=== PATIENT | female | born 1970 | race Caucasian/White ===

== ENCOUNTER 2020-05-28 09:51 | Outpatient (REF) | payer OTHER, SELFPAY ==
--- NOTE | 2020-05-28 08:45 | PAPFT_PTH ---
PATIENT: Alma Martin LOC: [facility] U#:[id number] AGE/SX: 50/F ROOM: RE05/28/[address]: Nettie Houston : 1970 BED: DIS: 05/28/2020 SPEC #: [id number] RECD: 05/28/20 18:15 STATUS: PASHA REFederico #: [id number] HARRY: 05/28/20 08:[address]: Nettie Houston DEPT: [facility] Cytology RECD BY: Malissa Jacques Tissues: 1 - CX/ENDOCX FOR PAP SMEARS Procedures: PAP THIN PREP/UVM Screening HPV DNA PROBE Comments: [id number]
[2020-05-29 15:17] LABS: Chlamydia Result Negative (Negative); GC Result Negative (Negative)
== END 2020-05-28 09:52 | disposition home or self-care (01) ==
LOC: NCHCN 09:51
PROVIDERS: PCP Nurse Practitioner Family; Visit Provider Nurse Practitioner Family
DX: Z00.00 Encounter for general adult medical examination without abnormal findings (principal); N89.8 Other specified noninflammatory disorders of vagina; Z11.3 Encounter for screening for infections with a predominantly sexual mode of transmission; Z12.4 Encounter for screening for malignant neoplasm of cervix; Z01.419 Encounter for gynecological examination (general) (routine) without abnormal findings; Z11.51 Encounter for screening for human papillomavirus (HPV)
CPT/HCPCS: 87491; 87591; 88142; 87480; 87510; 87624; 87660

== ENCOUNTER 2021-03-22 01:32 | Outpatient (CLI) | payer OTHER, SELFPAY ==
[2021-03-22 11:13] LABS: Source Nasal/Nares
[2021-03-22 15:47] LABS: COVID-19 PCR Negative (Negative)
== END 2021-03-22 01:33 | disposition home or self-care (01) ==
LOC: LBO 01:33
PROVIDERS: PCP Nurse Practitioner Family; Visit Provider Student in an Organized Health Care Education/Training Program
DX: Z20.822 Contact with and (suspected) exposure to COVID-19 (principal)
CPT/HCPCS: 87635

== ENCOUNTER 2021-03-24 08:01 | Day surgery (SDC) | payer OTHER, SELFPAY ==
[2021-03-24] VITALS (12 sets, daily range): BP systolic 81–114; BP diastolic 49–89; PULSE 58–74; RESP 12–17; TEMP 36.4–36.6; O2SAT 94–100; BMI 25.0
--- NOTE | 2021-03-24 07:31 | PDOC.DSDIS_ITS ---
Discharge Plan Disposition Patient Disposition: HOME Condition: Good Discharge Details Reason For Visit: Right ankle bimalleolar fracture Attending Provider: Howie Murdock Primary Care Provider: Nettie Houston Home Meds and New Rx's Prescriptions: New acetaminophen 500 mg tablet 500 mg PO Q6H PRN (Reason: pain) Qty: 60 RF: 2 ibuprofen 600 mg tablet 600 mg PO TID PRN (Reason: pain) Qty: 60 RF: 0 hydrocodone-acetaminophen 5-325 mg tablet 1 tab PO Q6H PRN (Reason: severe pain) Qty: 6 RF: 0 Continued lamotrigine 200 mg tablet 200 mg PO BID RF: 0 levetiracetam 500 mg tablet 500 mg PO BID RF: 0 cetirizine [Zyrtec] 10 mg tablet 10 mg PO DAILY PRNRF: 0 fluticasone propionate 50 mcg/actuation spray,suspension 1 spray intranasal DAILY RF: 0 multivitamin Tablet 1 tab PO DAILY RF: 0 Discharge Instructions Additional Instructions: Ankle ORIF Discharge Instructions Activity: You are NON WEIGHT BEARING. You should keep the leg elevated as much as possible. You may wiggle your toes and move your hip and knee. Dressings: You should keep your splint clean and dry. Do NOT get wet or dirty. If you have issues with your splint, please call the office at [phone] or the hospital after hours. Medications: - You should take Tylenol and Ibuprofen around the clock for baseline pain. - You have been prescribed a stronger narcotic for breakthrough pain. - You should take a Baby Aspirin (81mg) twice a day for blood clot prevention. Follow-up: 2 weeks Referrals: Howie Murdock MD [ [facility] STAFF PHYSICIAN] - Equipment/Supplies: Non-Weight Bearing Crutches and Splint Activity:: Elevate Remove Dressings/Wound Care:: Do Not Remove Shower/Bathe:: Cover Diet:: As Tolerated Discharge Orders Discharge Orders: Discharge Order (Routine); Ordered 03/24/21 Ordered By: Jenn Lucero DS: Diagnosis Discharge Diagnosis (1) Closed bimalleolar fracture of right ankle: Status: Acute
--- NOTE | 2021-03-24 07:54 | ANES.PREOP_ITS ---
General Info Date of Service Date Performed: 03/24/21 Height: 5 ft 5 in Weight: 68.039 kg Body Mass Index (BMI): 25.0 Surgical Procedure: Operation Date: 03/24/21 10:40 Proposed Procedures Side Surgeon p Ankle ORIF Rt Bimalleolar Fx Right Howie Murdock MD Meds Allergies and Home Medications Allergies Allergy/AdvReac Type Severity Reaction Status Date / Time No Known Allergies Allergy Verified 03/23/21 10:42 Home Medication Medication Instructions Recorded cetirizine 10 mg tablet 10 mg PO DAILY PRN 03/17/21 fluticasone propionate 50 1 spray INTRANASAL DAILY 03/17/21 mcg/actuation nasal spray,suspension lamotrigine 200 mg tablet 200 mg PO BID 03/17/21 levetiracetam 500 mg tablet 500 mg PO BID 03/17/21 multivitamin 1 tab PO DAILY 03/17/21 acetaminophen 500 mg PO Q6H PRN #60 tab 03/24/21 hydrocodone-acetaminophen 1 tab PO Q6H PRN #6 tab 03/24/21 ibuprofen 600 mg PO TID PRN #60 tab 03/24/21 Current Visit Medications: Current Medications Generic Name Dose Route Start Last Admin Trade Name Freq PRN Reason Stop Dose Admin Acetaminophen 1,000 mg 03/24/21 06:00 Acetaminophen 500 Mg Tab PO 03/24/21 16:00 PREOP NIMISHA Acetaminophen 650 mg 03/24/21 07:28 Acetaminophen 325 Mg Tab PO Q4H PRN PRN Hydrocodone Bitart/Acetaminophen 0 tab 03/24/21 07:28 Hydrocodone 5/Acetaminophen 325 Tab PO Q3H PRN PRN Pain Celecoxib 400 mg 03/24/21 06:00 Celecoxib 200 Mg Cap PO 03/24/21 16:00 PREOP NIMISHA Ringer's Solution 1,000 mls @ 80 mls/hr 03/24/21 06:00 IV 04/22/21 23:59 INFUSION NIMISHA Cefazolin Sodium/Dextrose 2 gm in 50 mls @ 100 mls/hr 03/24/21 06:00 Ancef Duplex IVPB 04/22/21 23:59 PREOP NIMISHA Tranexamic Acid 1,000 mg/ 60 mls @ 360 mls/hr 03/24/21 06:00 Sodium Chloride IV 03/24/21 16:00 PREOP NIMISHA IV Miscellaneous Supplies 1 each 03/24/21 06:00 Iv Access IV 04/22/21 23:59 DIRECTED NIMISHA Sodium Chloride 0 ml 03/24/21 06:00 Normal Saline Flush 10 Ml Syr IV 04/22/21 23:59 PRN PRN Sodium Chloride 0 ml 03/24/21 06:00 Normal Saline 10 Ml Vial IJ 04/22/21 23:59 DIRECTED PRN Sterile Water 0 ml 03/24/21 06:00 Water,Injection,Sterile 10 Ml Vial IJ 04/22/21 23:59 DIRECTED PRN PFSH Active Problems Active Problems: Problem Status Onset Code Closed bimalleolar fracture of right ankle S82.841A Epilepsy G40.909 Medical History Medical History Complex partial seizure [place] [facility] [facility] [place] Last seizure was 3 years ago per pt/ Dental root implant present Multiple nevi Seasonal allergies Tobacco Smoking/Tobacco Use Status: Never Alcohol Alcohol Intake: current Alcohol intake frequency: a few times a week Substance Use Substance use: Never Substance use type: does not use Vital Signs and Lab Results Vital Signs Most Recent Vital Signs in EMR: Temp Pulse Resp BP Pulse Ox 36.5 C 74 16 113/86 99 03/24/21 08:17 03/24/21 08:17 03/24/21 08:17 03/24/21 08:17 03/24/21 08:17 Lab Results Blood Type / Crossmatch: No Data to Display Complete Blood Count: No Data to Display Complete Metabolic Panel: No Data to Display Liver Function Panel: 2 No Data to Display Coagulation Panel: No Data to Display Cardiac Panel: No Data to Display Arterial Blood Gas: No Data to Display Venous Blood Gas: No Data to Display Pancreas Panel: No Data to Display Thyroid Panel: No Data to Display Infectious Disease: Coronavirus (COVID-19)(PCR) Negative (Negative) 03/22/21 10:02 03/22/21 Coronavirus 2019 Source Nasal/Nares 03/22/21 10:02 03/22/21 Blood Cultures: No Data to Display Toxicology Panel: No Data to Display Panel: No Data to Display Anesthesia Assessment and Plan Anesthesia History Personal History: No History of Anesthesia Complications Family History: No Family History of Anesthesia Complications Exercise Tolerance Exercise Tolerance: Metabolic Equivalents>4 Pertinent Negatives Pertinent Negatives: No Symptoms of GERD, No Major Cardiovascular Symptoms or Complaints, No Major Pulmonary Symptoms or Complaints and No History of CVA/TIA Cardiac & Pulmonary Exam Cardiac Exam: Normal S1/S2 Heart Sounds Pulmonary Exam: Clear Bilateral Breath Sounds Implantable Cardiac Device Does patient have a Pacemaker or an ICD?: No Airway Exam Known Difficult Airway: No Mallampati Class: 2 Mouth Opening: Normal (> 3cm) Thyromental Distance: Greater than 3 cm Neck Range of Motion: Full ROM Neck Circumference: Normal Teeth Condition: Normal Dentition (Dental implant top 2 front) and Advised tooth loss possible given current condition (indicate tooth) ASA Classification ASA Score: ASA 2 Emergency Case?: No NPO Status NPO Status: NPO Clears >2 hours, Solids >8 hours Status Status: Not Per Patient Anesthesia Plan Resuscitation Status: Full Code Anesthesia Technique: General Anesthesia Airway Planned: LMA Pain Management: Surgeon and patient request nerve block (Right popliteal and adductor canal blocks) Monitors Used: Standard Monitors and Central Line Preoperative Comments:: 50 yo female with ankle fracture. Sig PMHx: epilepsy (levetiracetam/lamotrigine last sz ~3 y ago), never smoker, occ EtOH. Discussed risk, benefits, and alternatives of general vs spinal, +/- regional anesthesia (pop/sci, adductor). plan for general with pop/sci and adductor
[2021-03-24] MEDS: Acetaminophen 500 MG TAB 1000 MG PO (08:48)
[2021-03-24] MEDS: Lactated Ringers 1,000 ML 80 ML IV (08:49)
[2021-03-24] MEDS: Celecoxib 200 MG CAP 400 MG PO (08:49)
--- NOTE | 2021-03-24 09:13 | HPE_ITS ---
Assessment and Plan Assessment and plan (1) Closed bimalleolar fracture of right ankle: Status: Acute Assessment and plan: Alma is a 50-year-old who has a displaced bimalleolar ankle fracture on the right side. Given her young age and active lifestyle would recommend fixation for stabilization of the bony fragments and to prevent future degeneration of the ankle joint. I reviewed the technical details of this case. I also discussed the risk of the procedure to include bleeding, infection, pain, stiffness, damage to nerves and vessels, damage to muscle and tendons, malunion, nonunion, hardware prominence, hardware failure, blood clot, need for repeat procedures. Despite these risk, she elects to proceed. Qualifiers: Encounter type: initial encounter Qualified Code(s): S82.841A - Displaced bimalleolar fracture of right lower leg, initial encounter for closed fracture History of Present Illness History of Present Illness Chief Complaint: Right Ankle Fracture Narrative: Alma is a healthy and active 50-year-old who was walking outside on 08 March when she slipped on some ice. She had a twisting type injury to her right ankle and felt immediate pain with a palpable and audible crack. She was seen in the [facility] emergency department and diagnosed with a bimalleolar ankle fracture. A gentle reduction was performed and she was placed in a splint. I discussed the case with her over the phone given that she lives a distance away. Given the bimalleolar nature of the fracture and its displacement I recommend operative fixation. She is here today for that procedure. She denies any numbness or tingling. She denies any previous issues with anesthesia. She denies any chest pain or shortness of breath. She does have significant anxiety by procedure and about taking any pain medications. He has no sick contacts. No active medical issues. Negative COVID-19 test. She does have remote history of seizure which is well controlled. Review of Systems All systems reviewed & are unremarkable except as noted in HPI and below PFSH All Active Problems (Updated 03/24/21 @ 10:25 by Howie Murdock MD) Closed bimalleolar fracture of right ankle (Acute) Epilepsy (Acute) Medical History Complex partial seizure Being followed [place] Dr. Long[place] [facility] [place]. Last seizure was 3 years ago per pt/ Dental root implant present Multiple nevi Seasonal allergies Social History Smoking/Tobacco Use Status: Never Smoking risk assessment performed?: Yes Alcohol Intake: current Alcohol Intake frequency: a few times a week Drug use: Never Substance use type: does not use Do you feel safe at home: Yes Do you feel safe in your relationship?: Yes Meds Allergies and Home Medications Allergies Allergy/AdvReac Type Severity Reaction Status Date / Time No Known Allergies Allergy Verified 03/23/21 10:42 Home Medications Medication Instructions Recorded Confirmed Type cetirizine 10 mg tablet 10 mg PO DAILY PRN 03/17/21 03/23/21 History fluticasone propionate 50 1 spray INTRANASAL DAILY 03/17/21 03/23/21 History mcg/actuation nasal spray,suspension lamotrigine 200 mg tablet 200 mg PO BID 03/17/21 03/23/21 History levetiracetam 500 mg tablet 500 mg PO BID 03/17/21 03/23/21 History multivitamin 1 tab PO DAILY 03/17/21 03/23/21 History acetaminophen 500 mg PO Q6H PRN #60 tab 03/24/21 Rx hydrocodone-acetaminophen 1 tab PO Q6H PRN #6 tab 03/24/21 Rx ibuprofen 600 mg PO TID PRN #60 tab 03/24/21 Rx Exam Resp Effort & Inspection: normal respiratory effort Auscultation: clear to auscultation bilaterally Cardio Rate: regular rate Rhythm: regular rhythm Extrem Other: Evaluation of the right leg shows a well-placed splint. Toes are warm and well perfused. Capillary fill less than 2 seconds. Sensation is grossly intact to light touch over the deep and superficial peroneal nerve and tibial nerve distribution. No pain to palpation around the knee. Results Imaging Imaging Studies: X-ray of the right knee shows a bimalleolar ankle fracture. There is lateral placement both the medial and lateral fragments with some shift of the talus. Last Vital Signs Temp 36.5 C 03/24/21 08:17 Pulse 74 03/24/21 08:17 Resp 16 03/24/21 08:17 BP 113/86 03/24/21 08:17 Pulse Ox 99 03/24/21 08:17
--- NOTE | 2021-03-24 10:22 | NUR.NOTE ---
R leg Nerve block performed, adductor and popliteal, without incident. Pt tolerated procedure well. Vitals stable pre, during nd post procedure. Nursing Note:
[2021-03-24] MEDS: ceFAZolin 2 GM/50 ML BAG IVPB (10:27)
--- NOTE | 2021-03-24 10:55 | W.ANESNERVE ---
Nerve Block Single Injection Procedure Date and Time Date Performed: 03/24/21 Procedure Start: 10:10 Location Where Procedure Performed Procedure Location: Day Surgery Unit Reason Performed: Postoperative Analgesia Requesting Provider: Howie Murdock Timeout Performed Timeout Performed: Yes Monitoring Used ECG, Blood Pressure and SpO2 Sterility Sterility: Hand Hygiene and Surgical Cap Sedation Given During Procedure Sedation Given (Indicate Dose Given): Versed IV Dose:: 5 mg Patient Mental Status Patient Mental Status: Sedate with meaningful communication Nerve Block 1st Nerve Block: Laterality: Right Block Type: Adductor Canal Needle / Catheter Used: 100mm SonoPlex II Local Anesthetic Bolus (Indicate Dose Given): Lidocaine used for local infiltration of skin, Injected in 3-5ml increments after negative blood aspiration, Bupivacaine 0.375% Dose:: 10 and Exparel Dose:: 5 Additives (Indicate Dose Given): None Ultrasound: Sterile probe cover and gel used Ultrasound Image Saved?: Yes Nerve Stimulator: Not Used Paresthesia: None Procedure Tolerated: No Complications Procedure Outcome: Successful Performed By: Bo Dickey 2nd Nerve Block: Laterality: Right Block Type: Popliteal Sciatic Needle / Catheter Used: 100mm SonoPlex II Local Anesthetic Bolus (Indicate Dose Given): Lidocaine used for local infiltration of skin, Injected in 3-5ml increments after negative blood aspiration, Bupivacaine 0.375% Dose:: 20 mL and Exparel Dose:: 15 mL Additives (Indicate Dose Given): None Ultrasound: Sterile probe cover and gel used Ultrasound Image Saved?: Yes Nerve Stimulator: Not Used Paresthesia: None Procedure Tolerated: No Complications Procedure Outcome: Successful Performed By: oB Dickey
--- NOTE | 2021-03-24 12:27 | DI.RAD_ITS ---
Exam(s) XR ANKLE RT 2V EXAM: XR ANKLE RT 2V CLINICAL HISTORY: FRACTURED RIGHT ANKLE TECHNIQUE: 2D and realtime digital imaging was performed. COMPARISON: CR XR ANKLE COMPLETE MIN 3V RT from 03/15/2021 FINDINGS: C-arm fluoroscopy was utilized by Dr. Murdock during open reduction and internal fixation of tibiofi bular fracture fragments. Hard copies show plate and screw fixation in place with nearly anatomic al ignment of the fracture fragments. IMPRESSION: RADIATION DOSE DELIVERED: percy Rollins=1.96 mGy Total DLP
--- NOTE | 2021-03-24 14:17 | W.ANESPOSTOP ---
Postoperative Evaluation Date, Time and Location Date Performed: 03/24/21 Time Performed: 14:17 Patient Location: Day Surgery Unit Vital Signs Most Recent Imported Vital Signs: Most Recent Vital Signs Temp Pulse Resp BP Pulse Ox 36.5 C 66 16 102/89 94 03/24/21 13:45 03/24/21 13:45 03/24/21 13:45 03/24/21 13:45 03/24/21 13:45 Pain Score Most Recent Pain Score: Most Recent Pain Score Pain Level 0 03/24/21 13:45 Assessment Mental Status: Awake (Alert & Oriented to Patient Baseline) Airway and Respiratory Function: Patent airway with normal (patient baseline) respiratory exam Cardiovascular Function: Hemodynamically Stable Hydration Status: Adequately Hydrated Nausea & Vomiting: No Nausea or Vomiting Pain: Pt. Denies Any Pain Peripheral Nerve Block: Regional nerve block not resolved at time of post operative discharge
--- NOTE | 2021-03-24 21:00 | W.PM.OP ---
Date of service: 03/24/21 Time of Service: 13:00 Operative Note Operative Note DATE OF PROCEDURE: 10/05/19 PRE-OP DIAGNOSIS: [SIDE] Ankle Fracture POST-OP DIAGNOSIS: same PROCEDURE: Open Reduction and Internal Fixation of Right Ankle - Lateral Malleolus, Medial Malleolus, Syndesmosis SURGEON: Howie Murdock CRM MANAGER: Jenn Lucero ANESTHESIA TYPE: Spinal Refer to Anesthesia Record ESTIMATED BLOOD LOSS: 50 PATHOLOGY: none sent TOURNIQUET TIME: 0 COMPLICATIONS: None Patient was transported to: PACU Patient's condition: stable Indications: Alma who presented to the Emergency Department at [facility] after a fall. X-rays confirmed the diagnosis of a bimalleolar ankle fracture. I reviewed the possible treatment options and given the fracture, I recommended operative fixation. I discussed the technical details of the surgery. I reviewed the risks such as bleeding, infection, pain, stiffness, malunion, nonunion, hardware prominence, hardware faiilure, malrotation, damage to nerves and vessels, blood clot. Despite these risks, Alma agreed to proceed. Findings: There was a fracture of the medial malleolus, more vertical than usual, which waThis was secured with the IMN and screws. Procedure Description: Alma was greeted in the preoperative area. Consent was previously reviewed and signed. Once in the operating room, anesthesia was administered. The patient was transferred to the fracture table in the supine position. She was positioned in the supine position with the operative side placed onto a bone foam ramp. All bony prominences were well padded. Arms were placed out to the side, padded, and secured. A single dose of TXA, 1 gram, was then administered IV. Prophylactic antibiotics, Cefazolin 2 grams, was given for prophylactic antibiotics. A timeout was performed for safe surgery. The right leg was prepped with Chloraprep. The leg was draped with a stockinette and extremity drape. The medial side was approached first. This utilized a curvilinear incision. Deep dissection was carried bluntly after the skin was incised. Branch of the saphenous vein were cauterized and the saphenous vein itself was mobilized. Fracture was quite evident. It was a vertical appearing fracture starting at the shoulder of the medial tibia. Fracture hematoma was cleared. The fracture was actually opened and the joint was inspected. Some synovitis was removed and there is no other loose debris seen. Attention was then turned to the lateral side of the ankle. A longitudinal incision was made overlying the fibula. Dissection was carried out the skin. Blunt dissection was carried deeper. The fascia overlying the fibula was incised sharply and periosteal flaps were raised. The fracture was opened up and fracture hematoma was removed. I then was able to reduce the fracture with manipulation of traction, and internal rotation of the foot along with a pointed point lobster claw type clamp. There is no significant bone to lag and therefore the clamp was left in place. I drove a K wire across the fracture site to provisionally hold the fracture. A variable angle Synthes distal fibular locking plate was then placed onto the lateral fibula. This held in place by clamp. 2 distal screws were placed. These were 2.7 mm locking screws. A single 3.5 millimeters screw was placed proximal to the fracture site to bring the plate down to bone and secure it. Fluoroscopy is utilized to confirm that the plate was in appropriate position the fracture still reduced. This point I proceeded with placing 2 additional screws in the proximal plate, one 3.5 mm and one 2.7 millimeter screw. These were placed bicortically. I placed additional 2 2.7mm locking screws distally. With this in place the Ana was tested and the fibula was stable. However, on stress view, the medial clear space opened up. Therefore, I proceeded to place a Synthes Fibulink device. This in position the syndesmosis was tightened with the foot in neutral dorsiflexion. Ankle was once again tested and there is no gapping of the medial clear space. The wound laterally and medially are both irrigated thoroughly. Skin and soft tissues were injected with 0.25% bupivacaine with epinephrine. Over the medial ankle, the deep tissues were closed with 3-0 Vicryl followed by a 4-0 nylon. The lateral ankle had its deep tissue, fascia, closed with a 0 Vicryl. This was then followed by 3-0 Vicryl in buried fashion and then by a 4-0 nylon in interrupted manner. The wounds were dressed with Xeroform, 4 x 4's, web roll. This was placed into a short posterior leg splint which was well-padded. At the end of the case, all counts were correct. Alma tolerated the procedure well without known complication and was taken to the PACU for recovery. Plan will remain nonweightbearing. She will be seen in follow-up in 10 to 14 days for splint removal and x-rays.
--- NOTE | 2021-03-27 08:57 | ANES_ITS ---
Date of service: 03/27/21 Time of Service: 08:57 Anesthesia Note Report Anesthesia Note: Return telephone call to patient who paged supervisor electronics testing provider to discuss tingling sensation in operative lower extremity. Patient reports some tactile sensation return afternoon and then intermittent periods of what was reported as tingling to lateral aspect of leg. Nerve block notes were reviewed and patient received both Bupivacaine and Exparel in both the adductor and sciatic blocks. Patient was re-educated about the duration of action of Exparel and the likelihood that the density of the block changed afternoon as the Bupivacaine wore off and the Exparel continued to provide some degree of analgesia. Patient reports brisk capillary refill to all toes on surgical side. Patient encouraged to continue following post operative instructions and to reach out with any further concerns. Will follow up with patient early next week.
--- NOTE | 2021-04-01 09:13 | PDOC.ANES ---
Date of service: 04/01/21 Time of Service: 09:14 Anesthesia Note Report Anesthesia Note: Called Alma to follow up in regards to her conversation with my colleague this past weekend. Her nerve block has fully worn off, it was mostly off by Monday. She has not more of the tingling that she was experiencing before. We discussed that it sounds like the tingling was just the waning of the block, but that we are always concerned for nerve injury. she expressed understanding and feels good. She has no further questions at this time and was encouraged to reach out to us if she has any.
== END 2021-03-24 08:02 | disposition home or self-care (01) ==
LOC: SUR 08:01
PROVIDERS: PCP Nurse Practitioner Family; Visit Provider Student in an Organized Health Care Education/Training Program
PROC: (CPT 27814; principal; 2021-03-24 10:30)
DX: S82.841A Displaced bimalleolar fracture of right lower leg, initial encounter for closed fracture (principal); G40.909 Epilepsy, unspecified, not intractable, without status epilepticus; X58.XXXA Exposure to other specified factors, initial encounter
CPT/HCPCS: 27814; 27829; 76942; 73600; J0690; J1100; J1885; J2405

== ENCOUNTER 2021-04-02 08:22 | Outpatient (CLI) | payer OTHER, SELFPAY ==
--- NOTE | 2021-04-02 08:00 | DI.RAD_ITS ---
Exam(s) XR ANKLE RT COMPLETE EXAM: XR ANKLE RT COMPLETE CLINICAL HISTORY: s/p orif. TECHNIQUE: 2D digital imaging was performed. COMPARISON: No exams were available for comparison FINDINGS: There is a lateral fixation plate across a healed fibular fracture site. There are also 2 parallel s crews across a healed medial malleolus fracture site and there are other screws just above the tibial plafond. There is no widening of the mortise. Talar dome appears unremarkable. Sub talar joint ap pears unremarkable. There is no narrowing of the tibiotalar joint. No radiographic evidence of hardware loosening nor osteomyelitis. IMPRESSION: DATA REPOSITORY: RADIATION DOSE DELIVERED:
== END 2021-04-02 08:23 | disposition home or self-care (01) ==
LOC: DIORS 08:23
PROVIDERS: PCP Nurse Practitioner Family; Referring Provider Nurse Practitioner Family; Visit Provider Physician Assistant Surgical
DX: S82.841D Displaced bimalleolar fracture of right lower leg, subsequent encounter for closed fracture with routine healing (principal)
CPT/HCPCS: 73610

== ENCOUNTER 2021-04-30 10:10 | Outpatient (CLI) | payer OTHER, SELFPAY ==
--- NOTE | 2021-04-30 10:00 | DI.RAD_ITS ---
Exam(s) XR ANKLE RT COMPLETE EXAM: XR ANKLE RT COMPLETE CLINICAL HISTORY: f/u R ankle fracture. TECHNIQUE: 2D digital imaging was performed. COMPARISON: CR XR ANKLE RT COMPLETE from 04/02/2021 FINDINGS: BONES: There are stable post operative changes present. No new fracture or dislocation. JOINTS: The joint spaces are well maintained. No joint effusion is present. SOFT TISSUE: Normal. IMPRESSION: Stable postoperative changes. DATA REPOSITORY: RADIATION DOSE DELIVERED:
== END 2021-04-30 10:11 | disposition home or self-care (01) ==
LOC: DIORS 10:10
PROVIDERS: PCP Nurse Practitioner Family; Referring Provider Nurse Practitioner Family; Visit Provider Student in an Organized Health Care Education/Training Program
DX: S82.841D Displaced bimalleolar fracture of right lower leg, subsequent encounter for closed fracture with routine healing (principal); X58.XXXD Exposure to other specified factors, subsequent encounter
CPT/HCPCS: 73610

== ENCOUNTER 2021-05-28 11:14 | Outpatient (CLI) | payer OTHER, SELFPAY ==
--- NOTE | 2021-05-28 10:45 | DI.RAD_ITS ---
Exam(s) XR ANKLE RT COMPLETE EXAM: XR ANKLE RT COMPLETE CLINICAL HISTORY: FU R ANKLE FRACTURE. TECHNIQUE: 2D digital imaging was performed. COMPARISON: CR XR ANKLE RT COMPLETE from 04/30/2021 FINDINGS: Again noted is evidence of ORIF with lateral fixation plate across healed distal fibular fracture sit e and screws across the medial malleolus from healed fracture site as well as oblique screws above th e tibial plafond and. There is no hardware loosening nor radiographic evidence of osteomyelitis. Th ere are mild degenerative changes in the tibiotalar joint. Some mild lucency is noted in the talar d ome but no distinct osteochondral defect nor prominent degenerative subarticular cyst at this level. Subtalar joint appears unremarkable. No os trigonum. No prominent inferior calcaneal spur. No deg enerative changes in the talonavicular and calcaneocuboid joints. IMPRESSION: DATA REPOSITORY: RADIATION DOSE DELIVERED:
== END 2021-05-28 11:15 | disposition home or self-care (01) ==
LOC: DIORS 11:14
PROVIDERS: PCP Nurse Practitioner Family; Visit Provider Student in an Organized Health Care Education/Training Program
DX: S82.841D Displaced bimalleolar fracture of right lower leg, subsequent encounter for closed fracture with routine healing (principal); X58.XXXD Exposure to other specified factors, subsequent encounter
CPT/HCPCS: 73610

== ENCOUNTER 2021-06-29 12:12 | Outpatient (REF) | payer OTHER, SELFPAY ==
[2021-06-29 14:19] LABS: Anion Gap 8.5 mmol/L (3-11); BUN 6 mg/dL (7-18); CO2 26.5 mmol/L (21.0-32.0); CREATININE 0.8 mg/dL (0.55-1.02); Calcium 8.8 mg/dL (8.5-10.1); Calculated LDL 159 mg/dL (<100); Chloride 105 mmol/L (98-107); Cholesterol 241 mg/dL (<200); Glucose 90 mg/dL (74-106); HDL Cholesterol 61 mg/dL (40-60); Potassium 4.7 mmol/L (3.5-5.1); Sodium 140 mmol/L (136-145); Triglyceride 106 mg/dL (<150)
[2021-06-30 10:17] LABS: HIV-1/2 Ag & Ab Screen Negative (Negative)
[2021-06-30 11:04] LABS: Hep A Total Ab w Rflx IgM Positive (Negative)
[2021-06-30 13:20] LABS: HCV RNA Qualitative Undetected (Undetected); Hep A Antibody IgM Negative (Negative)
== END 2021-06-29 12:13 | disposition home or self-care (01) ==
LOC: NCHCN 12:12
PROVIDERS: PCP Nurse Practitioner Family; Visit Provider Nurse Practitioner Family
DX: G40.209 Localization-related (focal) (partial) symptomatic epilepsy and epileptic syndromes with complex partial seizures, not intractable, without status epilepticus (principal); Z79.899 Other long term (current) drug therapy; Z01.84 Encounter for antibody response examination; Z11.59 Encounter for screening for other viral diseases; Z51.81 Encounter for therapeutic drug level monitoring; Z11.4 Encounter for screening for human immunodeficiency virus [HIV]; Z00.00 Encounter for general adult medical examination without abnormal findings; Z13.220 Encounter for screening for lipoid disorders
CPT/HCPCS: 80048; 80061; 80175; 86709; 87389; 87522

== ENCOUNTER 2021-07-02 10:38 | Outpatient (CLI) | payer OTHER, SELFPAY ==
--- NOTE | 2021-07-02 10:30 | DI.RAD_ITS ---
Exam(s) XR ANKLE RT COMPLETE EXAM: XR ANKLE RT COMPLETE CLINICAL HISTORY: follow up. TECHNIQUE: 2D digital imaging was performed. Three images were obtained. AP, lateral and oblique vi ews were obtained. COMPARISON: CR XR ANKLE RT COMPLETE from 05/28/2021 FINDINGS: BONES: There are stable post operative changes present. No new fracture or dislocation. JOINTS: The joint spaces are well maintained. No joint effusion is present. SOFT TISSUE: Normal. IMPRESSION: Stable postoperative changes. DATA REPOSITORY: RADIATION DOSE DELIVERED:
== END 2021-07-02 10:39 | disposition home or self-care (01) ==
LOC: DIORS 10:38
PROVIDERS: PCP Nurse Practitioner Family; Referring Provider Nurse Practitioner Family; Visit Provider Physician Assistant Surgical
DX: S82.841D Displaced bimalleolar fracture of right lower leg, subsequent encounter for closed fracture with routine healing (principal); X58.XXXD Exposure to other specified factors, subsequent encounter
CPT/HCPCS: 73610

== ENCOUNTER → 2021-07-26 00:17 | Outpatient (CLI) | payer OTHER, SELFPAY ==
--- NOTE | 2021-07-26 | DI.MAMMO_ITS ---
Exam(s) MAMMO SCREENING EXAM: MAMMO SCREENING CLINICAL HISTORY: SCREENING FOR BREAST CA, Z12.39. TECHNIQUE: Bilateral full field digital CC and MLO mammographic images were obtained with 3D tomosyn thesis and utilizing computer aided detection (CAD). COMPARISON: Prior outside mammograms were reviewed, the most recent being November 2018. FINDINGS: There has been no significant change in appearance and distribution of the fibroglandular tissue agai n noted be moderately dense, this somewhat decreasing the sensitivity of the mammogram for finding hi dden underlying lesions. Small benign-appearing nodules laterally in the right breast are unchanged from prior studies. Proba mishel benign intramammary lymph nodes. There are no new spiculated masses nor malignant appearing microcalcification groups. There is no significant architectural distortion nor skin thickening-retraction. IMPRESSION: No radiographic evidence of malignancy. BI-RADS Category 1 - Negative Breast Density - Category C - Heterogeneously dense Breast density Category C or D implies that the patient has dense breast tissue. Dense breast tissue can make it harder to find cancer on a mammogram. Dense breast tissue is also associated with an incr eased risk of breast cancer. This information about the result of the mammogram report was provided to the patient to raise their awareness. Use this report when you speak with the patient about their risks for breast cancer, which includes their family history. At that time, you may recommend additional screening tests (Ultrasoun d or MRI) as these tests may add significant information. A negative radiographic report should not delay biopsy if a dominant or clinically suspicious mass is present. Up to ten percent of cancers are not identified on mammography. A negative report may reinforce clinical impression. Adenosis and dense breasts may obscure an underlying neoplasm. False positive reports average 6 to 10%. Patient will receive a letter notifying them of these results.
== END ==
PROVIDERS: PCP Nurse Practitioner Family; Visit Provider Nurse Practitioner Family
DX: Z12.31 Encounter for screening mammogram for malignant neoplasm of breast (principal)
CPT/HCPCS: 77063; 77067

== ENCOUNTER 2022-05-31 11:10 | Day surgery (SDC) | payer OTHER, SELFPAY ==
[2022-05-31 12:17] VITALS: BP 125/86; PULSE 85; RESP 16; TEMP 37; O2SAT 99
[2022-05-31] MEDS: Lactated Ringers 1,000 ML 80 ML IV (12:35)
--- NOTE | 2022-05-31 13:36 | ANES.PREOP_ITS ---
General Info Date of Service Date Performed: 05/31/22 Height: 5 ft 6 in Weight: 69.7 kg Body Mass Index (BMI): 24.7 Surgical Procedure: Operation Date: 05/31/22 14:20 Proposed Procedure Side Surgeon p Colonoscopy Eren Loco MD Meds Allergies and Home Medications Allergies Allergy/AdvReac Type Severity Reaction Status Date / Time No Known Allergies Allergy Verified 07/02/21 10:27 Home Medication Medication Instructions Recorded cetirizine 10 mg tablet (Zyrtec) 10 mg PO DAILY PRN 03/17/21 lamotrigine 200 mg tablet 200 mg PO BID 03/17/21 levetiracetam 500 mg tablet 500 mg PO BID 03/17/21 multivitamin 1 tab PO DAILY 03/17/21 acetaminophen 500 mg tablet 500 mg PO Q6H PRN pain #60 tabs 03/24/21 ibuprofen 600 mg tablet 600 mg PO TID PRN pain #60 tabs 03/24/21 bisacodyl 5 mg tablet,delayed 5 mg PO ONCE colonscopy bowel prep 05/27/22 release (Dulcolax (bisacodyl)) #4 tabs fluticasone propionate 50 1 spray intranasal DAILY PRN 05/27/22 mcg/actuation nasal spray,suspension polyethylene glycol 3350 17 238 g PO ONCE colonoscopy prep 05/27/22 gram/dose oral powder #238 grams Current Visit Medications: Current Medications Generic Name Dose Route Start Last Admin Trade Name Freq PRN Reason Stop Dose Admin Ringer's Solution 1,000 mls @ 80 mls/hr 05/31/22 06:00 05/31/22 12:35 IV 06/29/22 23:59 80 mls/hr INFUSION NIMISHA Administration IV Miscellaneous Supplies 1 each 05/31/22 06:00 Iv Access IV 06/29/22 23:59 DIRECTED NIMISHA Sodium Chloride 0 ml 05/31/22 06:00 Normal Saline Flush 10 Ml Syr IV 06/29/22 23:59 PRN PRN Sodium Chloride 0 ml 05/31/22 06:00 Normal Saline 10 Ml Vial IJ 06/29/22 23:59 DIRECTED PRN Sterile Water 0 ml 05/31/22 06:00 Water,Injection,Sterile 10 Ml Vial IJ 06/29/22 23:59 DIRECTED PRN PFSH Active Problems Active Problems: Problem Status Onset Code Epilepsy G40.909 Screening for colon cancer Z12.11 Medical History Medical History Closed bimalleolar fracture of right ankle Complex partial seizure [place] [facility] [place] Last seizure was 3 years ago per pt/ Dental root implant present Multiple nevi Seasonal allergies Surgical History Surgical History History of ankle surgery Tobacco Smoking/Tobacco Use Status: Never Alcohol Alcohol Intake: current Alcohol intake frequency: a few times a week Substance Use Substance use: Never Substance use type: does not use Vital Signs and Lab Results Vital Signs Most Recent Vital Signs in EMR: Most Recent Vital Signs Temp Pulse Resp BP Pulse Ox 37.0 C 85 16 125/86 99 05/31/22 12:17 05/31/22 12:17 05/31/22 12:17 05/31/22 12:17 05/31/22 12:17 Point of Care Results Point of Care Results: POC- Test(urine) Negative 05/31/22 12:40 Lab Results Blood Type / Crossmatch: No Data to Display Complete Blood Count: No Data to Display Complete Metabolic Panel: No Data to Display Liver Function Panel: No Data to Display Coagulation Panel: No Data to Display Cardiac Panel: No Data to Display Arterial Blood Gas: No Data to Display Venous Blood Gas: No Data to Display Pancreas Panel: No Data to Display Thyroid Panel: No Data to Display Infectious Disease: No Data to Display Blood Cultures: No Data to Display Toxicology Panel: No Data to Display Panel: No Data to Display Anesthesia Assessment and Plan Anesthesia History Personal History: No History of Anesthesia Complications Family History: No Family History of Anesthesia Complications Exercise Tolerance Exercise Tolerance: Metabolic Equivalents>4 Pertinent Negatives Pertinent Negatives: No Symptoms of GERD, No Major Cardiovascular Symptoms or Complaints, No Major Pulmonary Symptoms or Complaints and No History of CVA/TIA Cardiac & Pulmonary Exam Cardiac Exam: Normal S1/S2 Heart Sounds Pulmonary Exam: Clear Bilateral Breath Sounds Implantable Cardiac Device Does patient have a Pacemaker or an ICD?: No Airway Exam Known Difficult Airway: No Mallampati Class: 2 Mouth Opening: Normal (> 3cm) Thyromental Distance: Greater than 3 cm Neck Range of Motion: Full ROM Neck Circumference: Normal Teeth Condition: Normal Dentition ASA Classification ASA Score: ASA 2 Emergency Case?: No NPO Status NPO Status: NPO Clears >2 hours, Solids >8 hours Status Status: Negative HCG Anesthesia Plan Resuscitation Status: Full Code Anesthesia Technique: General Anesthesia Airway Planned: Natural Airway Monitors Used: Standard Monitors Preoperative Comments:: No recent seizures
[2022-05-31 13:39] VITALS: BMI 24.7
[2022-05-31 14:57] VITALS: BP 143/99; PULSE 80; RESP 16; TEMP 36.3; O2SAT 97
--- NOTE | 2022-05-31 15:19 | W.ANESPOSTOP ---
Postoperative Evaluation Date, Time and Location Date Performed: 05/31/22 Time Performed: 15:00 Patient Location: Day Surgery Unit Vital Signs Most Recent Imported Vital Signs: Most Recent Vital Signs Temp Pulse Resp BP Pulse Ox 36.3 C L 80 16 143/99 H 97 05/31/22 14:57 05/31/22 14:57 05/31/22 14:57 05/31/22 14:57 05/31/22 14:57 Pain Score Most Recent Pain Score: Most Recent Pain Score Pain Level 0 05/31/22 14:57 Assessment Mental Status: Awake (Alert & Oriented to Patient Baseline) Airway and Respiratory Function: Patent airway with normal (patient baseline) respiratory exam Cardiovascular Function: Hemodynamically Stable Hydration Status: Adequately Hydrated Nausea & Vomiting: No Nausea or Vomiting Pain: Pt. Denies Any Pain Peripheral Nerve Block: Patient did not receive a nerve block
[2022-05-31 15:25] VITALS: BP 109/77; PULSE 79; RESP 16; TEMP 36.4; O2SAT 99
--- NOTE | 2022-05-31 15:34 | W.COLOREPORT ---
Date of service: 05/31/22 Time of Service: 15:35 Colonoscopy Report Procedure Description: Procedures performed: 1. Colonoscopy Preoperative diagnosis: Screening colonoscopy Postoperative diagnosis: Normal Colon Surgeon: Genia Loco Anesthesia: Leigha Indication for procedure: 52-year-old woman without any symptoms and no family history of colon cancer due for her first screening. Findings: Normal terminal ileum.? Normal Colon.? Normal Rectum. Surveillance/follow-up recommendations: 10 years Complications: None Blood loss: Minimal Prep: Excellent Procedure in detail: Written consent was obtained from the patient who was in agreement with the risks, benefits and indications of the procedure.? We went to the endoscopy suite and laid the patient in left lateral decubitus position.? Anesthesia was administered which was tolerated well.? A timeout was performed and when we are all in agreement we began the procedure. Digital rectal exam and visual examination was performed and within normal limits.? A well?lubricated colonoscope was advanced without difficulty all the way to the cecum identified by the ileocecal valve, and triangular folds and appendiceal orifice.? Terminal ileum was normal.? It was then slowly withdrawn.?? Retroflexion was performed in the rectum.? The findings/interventions are noted above. The scope was then removed and the patient tolerated the procedure well and was then taken back to the PACU in hemodynamically stable condition.
== END 2022-05-31 15:54 | disposition home or self-care (01) ==
PROVIDERS: PCP Nurse Practitioner Family; Visit Provider Student in an Organized Health Care Education/Training Program
PROC: 0DJD8ZZ Inspection of Lower Intestinal Tract, Via Natural or Artificial Opening Endoscopic (ICD-10-PCS; CPT 45378; principal; 2022-05-31 14:15)
DX: Z12.11 Encounter for screening for malignant neoplasm of colon (principal)
CPT/HCPCS: 45378

== ENCOUNTER 2022-07-18 15:04 | Outpatient (REF) | payer OTHER, SELFPAY ==
[2022-07-20 11:19] LABS: Lamotrigine 8.2 mcg/mL (3.0-15.0)
[2022-07-20 13:49] LABS: Levetiracetam 53.9 mcg/mL
== END 2022-07-18 15:05 | disposition home or self-care (01) ==
LOC: NCHCN 15:04
PROVIDERS: PCP Nurse Practitioner Family; Visit Provider Nurse Practitioner Family
DX: Z00.00 Encounter for general adult medical examination without abnormal findings (principal); E78.5 Hyperlipidemia, unspecified; G40.909 Epilepsy, unspecified, not intractable, without status epilepticus
CPT/HCPCS: 80175; 80177

== ENCOUNTER 2022-07-18 15:25 | Outpatient (REF) | payer OTHER, SELFPAY ==
[2022-07-18 17:28] LABS: Anion Gap 6.9 mmol/L (3-11); BUN 8 mg/dL (7-18); CO2 27.1 mmol/L (21.0-32.0); CREATININE 0.8 mg/dL (0.55-1.02); Calcium 8.7 mg/dL (8.5-10.1); Calculated LDL 172 mg/dL (<100); Chloride 104 mmol/L (98-107); Cholesterol 262 mg/dL (<200); Estimated GFR 89.15 (mL/min/1.73m2); Glucose 97 mg/dL (74-106); HDL Cholesterol 75 mg/dL (40-60); Potassium 4.4 mmol/L (3.5-5.1); Sodium 138 mmol/L (136-145); Triglyceride 79 mg/dL (<150)
== END 2022-07-18 15:26 | disposition home or self-care (01) ==
LOC: NCHCN 15:25
PROVIDERS: PCP Nurse Practitioner Family; Visit Provider Nurse Practitioner Family
DX: Z00.00 Encounter for general adult medical examination without abnormal findings (principal); E78.5 Hyperlipidemia, unspecified; G40.909 Epilepsy, unspecified, not intractable, without status epilepticus
CPT/HCPCS: 80048; 80061

== ENCOUNTER 2022-07-28 01:13 | Outpatient (CLI) | payer OTHER, SELFPAY ==
--- NOTE | 2022-07-28 07:30 | DI.MAMMO_ITS ---
Exam(s) MAMMO SCREENING EXAM: MAMMO SCREENING CLINICAL HISTORY: SCREENING, Z12.39; [facility], Z00.00. TECHNIQUE: Bilateral full field digital CC and MLO mammographic images were obtained with 3D tomosyn thesis and utilizing computer aided detection (CAD). COMPARISON: Prior mammograms were reviewed. FINDINGS: There has been no significant change in the appearance and distribution of the fibroglandular tissue. Again noted be moderately dense which somewhat decreases the sensitivity mammogram for finding hidd en underlying lesions. Again noted is an unchanged benign-appearing nodule laterally in the right breast is unchanged from p rior studies and probably a benign intramammary lymph node. There are no new spiculated masses nor malignant appearing microcalcification groups. There is no significant architectural distortion nor skin thickening-retraction. IMPRESSION: No radiographic evidence of malignancy. BI-RADS Category 1 - Negative Breast Density - Category C - Heterogeneously dense Breast density Category C or D implies that the patient has dense breast tissue. Dense breast tissue can make it harder to find cancer on a mammogram. Dense breast tissue is also associated with an incr eased risk of breast cancer. This information about the result of the mammogram report was provided to the patient to raise their awareness. Use this report when you speak with the patient about their risks for breast cancer, which includes their family history. At that time, you may recommend additional screening tests (Ultrasoun d or MRI) as these tests may add significant information. A negative radiographic report should not delay biopsy if a dominant or clinically suspicious mass is present. Up to ten percent of cancers are not identified on mammography. A negative report may reinforce clinical impression. Adenosis and dense breasts may obscure an underlying neoplasm. False positive reports average 6 to 10%. Patient will receive a letter notifying them of these results.
== END 2022-07-28 01:33 ==
LOC: DI 01:13
PROVIDERS: PCP Nurse Practitioner Family; Visit Provider Nurse Practitioner Family
DX: Z12.31 Encounter for screening mammogram for malignant neoplasm of breast (principal)
CPT/HCPCS: 77063; 77067

== ENCOUNTER 2023-03-06 14:12 | Outpatient (REF) | payer OTHER, SELFPAY ==
[2023-03-06 16:24] LABS: Calculated LDL 178 mg/dL (<100); Cholesterol 272 mg/dL (<200); HDL Cholesterol 69 mg/dL (40-60); Triglyceride 126 mg/dL (<150)
== END 2023-03-06 14:13 | disposition home or self-care (01) ==
LOC: NCHCN 14:12
PROVIDERS: PCP Nurse Practitioner Family; Visit Provider Nurse Practitioner Family
DX: E78.5 Hyperlipidemia, unspecified (principal)
CPT/HCPCS: 80061

== ENCOUNTER → 2023-08-09 01:54 | Outpatient (CLI) | payer OTHER, SELFPAY ==
--- NOTE | 2023-08-09 | DI.MAMMO_ITS ---
Exam(s) MAMMO SCREENING EXAM: MAMMO SCREENING CLINICAL HISTORY: Z12.31 Screening. TECHNIQUE: Bilateral full field digital CC and MLO mammographic images were obtained with 3D tomosyn thesis and utilizing computer aided detection (CAD). COMPARISON: Prior mammograms were reviewed. FINDINGS: Fibroglandular tissue pattern is again noted be moderately dense, this somewhat decreasing the sensit ivity of the mammogram for finding hidden underlying lesions. Stable benign nodule laterally in the right breast is unchanged from prior mammograms and probably be nign intramammary lymph node. There are no new spiculated masses nor malignant appearing microcalcification groups. There is no significant architectural distortion nor skin thickening-retraction. IMPRESSION: No radiographic evidence of malignancy. BI-RADS Category 1 - Negative Breast Density - Category C - Heterogeneously dense Breast density Category C or D implies that the patient has dense breast tissue. Dense breast tissue can make it harder to find cancer on a mammogram. Dense breast tissue is also associated with an incr eased risk of breast cancer. This information about the result of the mammogram report was provided to the patient to raise their awareness. Use this report when you speak with the patient about their risks for breast cancer, which includes their family history. At that time, you may recommend additional screening tests (Ultrasoun d or MRI) as these tests may add significant information. A negative radiographic report should not delay biopsy if a dominant or clinically suspicious mass is present. Up to ten percent of cancers are not identified on mammography. A negative report may reinforce clinical impression. Adenosis and dense breasts may obscure an underlying neoplasm. False positive reports average 6 to 10%. Patient will receive a letter notifying them of these results.
== END ==
PROVIDERS: PCP Nurse Practitioner Family; Visit Provider Nurse Practitioner Family
DX: Z12.31 Encounter for screening mammogram for malignant neoplasm of breast (principal); R92.333 Mammographic heterogeneous density, bilateral breasts
CPT/HCPCS: 77063; 77067

== ENCOUNTER 2024-08-23 01:06 | Outpatient (CLI) | payer OTHER, SELFPAY ==
[2024-08-23 19:59] LABS: HBs Antibody, Quant <3.1 mIU/mL (See Note); Hepatitis B Surface Ab Negative (See Note)
[2024-08-26 11:26] LABS: Measles IgG Antibody Positive (See Note); Mumps Antibody IgG Positive (See Note); Rubella IgG Ab (UVM) Positive (See Note)
[2024-08-28 17:58] LABS: Apolipoprotein B, Serum 98 mg/dL (48-124); Beta VLDL Cholesterol Not Detected mg/dL (<15); Beta VLDL Triglycerides Not Detected mg/dL (<15); Cholesterol, Total, CDC 220 mg/dL; Chylomicron Cholesterol Not Detected; Chylomicron Triglycerides Not Detected; HDL Cholesterol, CDC 64 mg/dL (>=50); LDL Cholesterol 121 mg/dL; LDL Triglycerides 35 mg/dL (<=50); Lp(a) Cholesterol 19 mg/dL (<5); LpX Not detected; Triglycerides, CDC 99 mg/dL; VLDL Cholesterol 16 mg/dL (<30); VLDL Triglycerides 46 mg/dL (<120)
== END 2024-08-23 01:07 | disposition home or self-care (01) ==
PROVIDERS: PCP Nurse Practitioner Family; Referring Provider Nurse Practitioner Family; Visit Provider Nurse Practitioner Family
DX: E78.5 Hyperlipidemia, unspecified (principal); Z00.00 Encounter for general adult medical examination without abnormal findings
CPT/HCPCS: 36415; 80061; 86706; 82172; 82664; 86735; 86762; 86765

== ENCOUNTER 2024-09-25 02:09 | Outpatient (CLI) | payer OTHER, SELFPAY ==
--- NOTE | 2024-09-25 08:06 | DI.MAMMO_ITS ---
Exam(s) MAMMO SCREENING EXAM: MAMMO SCREENING CLINICAL HISTORY: screening,Z12.39 TECHNIQUE: Mammograms were interpreted according to the usual protocol including computer analysis with CAD system, tomosynthesis and C-view imaging. COMPARISON: 2017 through 2023 FINDINGS: The breasts are composed of heterogeneously dense fibroglandular densities, Breast Density category C. No suspicious masses or suspicious microcalcifications are seen. No skin thickening or abnormal axillary lymph nodes are seen. There has been no significant change from prior exams. IMPRESSION: BI-RADS Category 1, Negative mammogram. Yearly screening mammography is recommended. Breast Density: Category C - The breasts are heterogeneously dense, which may obscure small masses. Breast density Category C or D implies that the patient has dense breast tissue. Dense breast tissue can make it harder to find cancer on a mammogram. Dense breast tissue is also associated with an increased risk of breast cancer. This information about the result of the mammogram report was provided to the patient to raise their awareness. Use this report when you speak with the patient about their risks for breast cancer, which includes their family history. At that time, you may recommend additional screening tests (Ultrasound or MRI) as these tests may add significant information. A negative radiographic report should not delay biopsy if a dominant or clinically suspicious mass is present. Up to ten percent of cancers are not identified on mammography. A negative report may reinforce clinical impression. Adenosis and dense breasts may obscure an underlying neoplasm. False positive reports average 6 to 10%.
== END 2024-09-25 02:29 ==
LOC: DI 02:09
PROVIDERS: PCP Nurse Practitioner Family; Visit Provider Nurse Practitioner Family
DX: Z12.31 Encounter for screening mammogram for malignant neoplasm of breast (principal); R92.333 Mammographic heterogeneous density, bilateral breasts
CPT/HCPCS: 77063; 77067